=== PATIENT | female | born 1975 | race Caucasian/White ===

== ENCOUNTER 2016-09-25 09:52 | Emergency (ER) | payer MEDICARE ==
[2015-04-03 07:14] VITALS: BMI 37.9
[~2016-09-25 09:52] MED LIST: PRISTIQ50 MG PO
== END 2016-09-25 11:34 | disposition home or self-care (01) ==
LOC: D.ER 09:52
DX: R07.89 Other chest pain (principal); F32.9 Major depressive disorder, single episode, unspecified; F17.200 Nicotine dependence, unspecified, uncomplicated

== ENCOUNTER 2019-11-25 19:00 | Outpatient (CLI) | payer MEDICARE ==
[2015-04-03 07:14] VITALS: BMI 37.9
== END 2019-11-25 23:59 | disposition home or self-care (01) ==
LOC: D.MAMMO 19:00
PROVIDERS: ATTEND Family Medicine
DX: N63.21 Unspecified lump in the left breast, upper outer quadrant (principal)

== ENCOUNTER 2019-12-04 08:00 | Outpatient (CLI) | payer MEDICARE ==
[2015-04-03 07:14] VITALS: BMI 37.9
== END 2019-12-04 08:01 | disposition home or self-care (01) ==
LOC: D.US 08:00
PROVIDERS: ATTEND Family Medicine
DX: R92.8 Other abnormal and inconclusive findings on diagnostic imaging of breast (principal)